=== PATIENT | female | born 1970 | race Hispanic/Latino ===

== ENCOUNTER 2022-04-24 17:20 | Inpatient (IN) | payer OTHER, SELFPAY ==
[~2022-04-24] VITALS: Ht 167.6 cm; Wt 86.7 kg
[2022-04-24] MEDS ORDERED: LABETALOL 100MG/20ML VIAL IV STA ×2 (17:57→19:27)
[2022-04-24 18:36] LABS: BASO # 0.1 10^3/uL (0.0-0.2); BASO % 0.6 % (0.0-1.0); EOS # 0.1 10^3/uL (0.0-0.5); EOS % 0.7 % (0.0-3.0); HEMOGLOBIN 13.3 g/dl (12.0-15.5); LYMPH # 1.8 10^3/uL (1.5-5.0); LYMPH % 21.2 % (24.0-44.0); MEAN CORPUSCULAR HEMOGLOBIN 22.2 pg (27.0-33.0); MEAN CORPUSCULAR HGB CONC 30.2 g/dl (32.0-36.5); MEAN CORPUSCULAR VOLUME 73.5 fl (80.0-96.0); MONO # 0.7 10^3/uL (0.0-0.8); MONO % 8.6 % (2.0-8.0); NEUTROPHILS # 5.7 10^3/uL (1.5-8.5); NEUTROPHILS % 68.4 % (36.0-66.0); PLATELET COUNT, AUTOMATED 225 10^3/uL (150-450); RED BLOOD COUNT 5.99 10^6/uL (4.00-5.40); WHITE BLOOD COUNT 8.4 10^3/uL (4.0-10.0)
[2022-04-24] MEDS ORDERED: ISOVUE-370 76% 100ML VIAL As Ordered ONE (18:39)
[2022-04-24 18:46] LABS: INR 0.93; PARTIAL THROMBOPLASTIN TIME 33.4 SECONDS (24.8-34.2); PROTHROMBIN TIME 12.7 SECONDS (12.5-14.5)
[2022-04-24 19:01] LABS: ALKALINE PHOSPHATASE 97 U/L (46-116); ALT/SGPT 43 U/L (7.0-40); AST/SGOT 36 U/L (<34); BILIRUBIN,DIRECT < 0.1 MG/DL (<0.4); BILIRUBIN,TOTAL 0.3 MG/DL (0.3-1.2); BLOOD UREA NITROGEN 15 MG/DL (9-23); CALCIUM LEVEL 9.5 MG/DL (8.5-10.1); CARBON DIOXIDE LEVEL 23 MMOL/L (20-31); CHLORIDE LEVEL 105 MMOL/L (98-107); CK-MB VALUE MASS 1.9 NG/ML (<3.6); CREATININE FOR GFR 0.72 MG/DL (0.55-1.30); FREE T4 1.32 NG/DL (0.89-1.76); GLOMERULAR FILTRATION RATE > 60.0 (>51); GLUCOSE, FASTING 107 MG/DL (60-100); POTASSIUM SERUM 4.2 MMOL/L (3.5-5.1); SODIUM LEVEL 138 MMOL/L (136-145); TOTAL PROTEIN 7.5 G/DL (5.7-8.2)
[2022-04-24 19:08] LABS: CPK CREATINE PHOSPHOKINASE 135 U/L (34-145)
[2022-04-24 19:10] LABS: RSV AMPLIFICATION NEGATIVE (NEGATIVE)
[2022-04-24 20:49] LABS: CHOLESTEROL LEVEL 186 MG/DL (<200); CHOLESTEROL RISK RATIO 3.24 (<5); HDL CHOLESTEROL 57.3 MG/DL (>40); LDL CHOLESTEROL 103.5 MG/DL (<100); NON-HDL-C 129 MG/DL; TRIGLYCERIDES LEVEL 126 MG/DL (<150)
[2022-04-24] MEDS ORDERED: ASPIRIN 81MG CHEW TABLET PO ONE (21:10)
[2022-04-24] MEDS ORDERED: LISI10TA22 PO (21:14)
[2022-04-24] MEDS ORDERED: OMEG10002 PO (21:14)
[2022-04-24] MEDS ORDERED: HOME MED LIST COMPLETE! XX SCH (21:15)
[2022-04-24] MEDS ORDERED: ATORVASTATIN 20 MG TAB PO SCH (22:25)
[2022-04-24 23:20] VITALS: BP 220/118
[2022-04-24] MEDS ORDERED: cloNIDine 0.1MG TABLET PO ONE (23:45)
[2022-04-24] MEDS: hydrALAZINE 20MG/ML 1ML VIAL IV PRN (23:52)
[2022-04-25] VITALS (18 sets, daily range): BP systolic 162–204; BP diastolic 70–110
[2022-04-25 08:28] LABS: BASO % 0.4 % (0.0-1.0); EOS % 0.4 % (0.0-3.0); HEMATOCRIT 42.5 % (36.0-47.0); HEMOGLOBIN 12.8 g/dl (12.0-15.5); LYMPH # 1.3 10^3/uL (1.5-5.0); MEAN CORPUSCULAR HEMOGLOBIN 22.2 pg (27.0-33.0); MEAN CORPUSCULAR HGB CONC 30.1 g/dl (32.0-36.5); MEAN CORPUSCULAR VOLUME 73.7 fl (80.0-96.0); MONO # 0.5 10^3/uL (0.0-0.8); MONO % 7.7 % (2.0-8.0); NEUTROPHILS % 72.1 % (36.0-66.0); PLATELET COUNT, AUTOMATED 226 10^3/uL (150-450); RED BLOOD COUNT 5.77 10^6/uL (4.00-5.40); WHITE BLOOD COUNT 6.9 10^3/uL (4.0-10.0)
[2022-04-25] MEDS ORDERED: FLUBLOK(EGG FREE)(QUAD)INFLUENZA VACC 0.5ML SYRINGE 18YRS & OLDER IM.IMMUN ONE (09:00)
[2022-04-25 09:44] LABS: ALBUMIN 3.7 G/DL (3.2-5.2); ALKALINE PHOSPHATASE 86 U/L (46-116); ALT/SGPT 37 U/L (7.0-40); AST/SGOT 28 U/L (<34); BLOOD UREA NITROGEN 9 MG/DL (9-23); CARBON DIOXIDE LEVEL 25 MMOL/L (20-31); CHLORIDE LEVEL 107 MMOL/L (98-107); CREATININE FOR GFR 0.68 MG/DL (0.55-1.30); GLOMERULAR FILTRATION RATE > 60.0 (>51); GLUCOSE, FASTING 101 MG/DL (60-100); MAGNESIUM LEVEL 1.9 MG/DL (1.8-2.4); SODIUM LEVEL 141 MMOL/L (136-145)
[2022-04-25] MEDS: ASPIRIN 81MG CHEW TABLET PO SCH (10:20)
[2022-04-25 10:27] LABS: BILIRUBIN,TOTAL 0.6 MG/DL (0.3-1.2)
[2022-04-25] MEDS: hydrALAZINE 20MG/ML 1ML VIAL IV PRN (12:17)
[2022-04-25] MEDS ORDERED: CLOPIDOGREL 300 MG TAB (PLAVIX) PO STA (13:19)
[2022-04-25] MEDS ORDERED: LISI10TA22 PO (13:25)
[2022-04-25] MEDS ORDERED: ASPI81CH8 PO (13:25)
[2022-04-25] MEDS ORDERED: ATOR1TAB21 PO (13:25)
[2022-04-25] MEDS ORDERED: CLOP75TA99 PO (13:25)
[2022-04-25] MEDS ORDERED: hydrALAZINE 20MG/ML 1ML VIAL IV ONE (13:30)
[2022-04-25 14:10] LABS: HEMOGLOBIN A1c 5.3 % (4.0-6.0)
[2022-04-25] MEDS ORDERED: **hydrALAZINE** 10 MG TAB PO ONE (17:30)
[2022-04-25] MEDS: CLOPIDOGREL 75 MG TAB PO SCH (20:24)
[2022-04-25] MEDS ORDERED: ATORVASTATIN 20 MG TAB PO SCH (21:00)
[2022-04-26 03:38] VITALS: BP 178/96
[2022-04-26 07:44] VITALS: BP 162/80
[2022-04-26] MEDS: CLOPIDOGREL 75 MG TAB PO SCH (07:55)
[2022-04-26] MEDS: ASPIRIN 81MG CHEW TABLET PO SCH (07:55)
[2022-04-26] MEDS ORDERED: ATOR1TAB21 PO (08:32)
[2022-04-26] MEDS ORDERED: LISI40TA4 PO (08:32)
[2022-04-26] MEDS ORDERED: lisinopriL 40MG TAB PO SCH (09:00)
[2022-04-26 09:06] VITALS: BP 164/98
[2022-04-26 12:07] VITALS: BP 158/80
== END 2022-04-26 13:09 | disposition home or self-care (01) | DRG 65 ==
LOC: M ED 17:20 → M ED INP 19:45 → ENRESERV 21:55 → M PCU 23:15 → OBSVTOIN 04-25 17:57
PROVIDERS: ADMIT Internal Medicine; ATTEND Internal Medicine
PROC: B246ZZZ Ultrasonography of Right and Left Heart (ICD-10-PCS; principal; 2022-04-26)
DX: I63.511 Cerebral infarction due to unspecified occlusion or stenosis of right middle cerebral artery (principal); I16.9 Hypertensive crisis, unspecified; E78.5 Hyperlipidemia, unspecified; K76.0 Fatty (change of) liver, not elsewhere classified; I10 Essential (primary) hypertension; Z79.899 Other long term (current) drug therapy; Z20.822 Contact with and (suspected) exposure to COVID-19